=== PATIENT | female | born 1970 | race African-American/Black ===

== ENCOUNTER 2025-08-01 12:48 | Outpatient (AMB) | payer OTHER, SELFPAY ==
--- NOTE | 2025-08-01 13:02 | A.OFFPC_ITS ---
Vital Signs 08/01/25 13:04 Height 5 ft 7.25 in Weight 169 lb BMI 26.3 BP 114/76 Blood Pressure Location Lt brachial Position Sitting Respiration 16 Pulse 72 Pulse Source Pulse Oximeter Temp 97.3 F Temp Source Temporal Artery Scan Pulse Oximetry (%) 98 Intake Visit Reasons: Annual PE Signal Technician Required: No Accompanied by: Self / Same As Patient Allergies Sulfa (Sulfonamide Antibiotics) Allergy (Intermediate, Verified 08/01/25 13:06) stomach pain/cramping Medication List - Last Reconciled 08/01/25 by Shelley Padilla MD albuterol sulfate 90 mcg/actuation inhalation Q6H PRN amlodipine 2.5 mg PO DAILY bupropion HCl XL 150 mg PO DAILY chlorhexidine gluconate 0.12% 15 mL PO DAILY PRN linaclotide (Linzess) 290 mcg PO DAILY multivit with min-folic acid 120 mcg (Vitafusion Women's Multi) 1 tab PO DAILY naratriptan 2.5 mg PO DAILY PRN rosuvastatin 5 mg PO DAILY zolpidem 10 mg PO BEDTIME Tobacco use date assessed: 08/01/25 Dental Screening Dental Screen Date: 08/01/25 Did you have a dental visit in the last 12 months?: Yes Did you have a dental problem in the last 6 months where you did not have access to dental care?: No Was dental information given to patient?: Patient has dentist HPI HPI Comments History of Present Illness Details The patient is a 55 year old female presenting with re-establishment of care and physical examination. Obesity: Managed with Zepbound and later Wegovy. Discontinued Wegovy due to side effects with unchanged weight. Walks 150 minutes/week, intake not calorie-tracked. Zepbound was changed due to insurance issues. Alopecia: Patients experienced hair thinning while on Wegovy, led to medication discontinuation. Gastroesophageal Reflux Disease (GERD): Postprandial burning sensation noted after Wegovy initiation, not exacerbated by recumbence. Sleep Apnea: Reported from prior diagnosis, awaiting October appointment for clinical evaluation at [facility]. Cognitive Change. Self-noted short-term memory decline, unrelated to family reflection, cognitive or conversation repetition. Hypertension: Controlled on amlodipine Hyperlipidemia: on statin Migraine: Controlled with no noted exacerbations. Shoulder Pain: History of left shoulder pain managed with Voltaren. Insomnia: Managed with zolpidem, pending sleep clinic evaluation Social History: - Exercises by walking for 30 minutes, f janet times a week - Caloric intake not tracked - Desires weight management with a goal of reducing to 150 lb - Enjoys bread and rice, minor appetite reduction noted with Wegovy Family History: - Family history of dementia in mother a nd aunt Diagnostic Results: Tests and Diagnostics: - Colonoscopy at [facility] with Dr. Davis: one polyp found(will obtain records) Screening: - Mammogram at [facility] on November 21 was normal - S[employer]IOR [employer] appointment with Dr. Harkins on December 16 2024 Review of Systems - Gastrointestinal: Reports postprandial burning sensation. - Neurological: Reports short-term memor y change - Psychological: Reports anxiety related to health issues. - Musculoskeletal: Denies ongoing pain b vandana reported shoulder issues. - Dermatological: Reports hair thinning. - Respiratory: Denies breathing issues Physical Exam General: NAD Chest: CTABL. Card: normal s1, s2, soft murmur across precordium Abd: SNTND, +BS Extremities: no edema Neuro: AOX3, Cognitive screening with clock drawing and recall test performed, completed successfully. Assessment and Plan 1. Obesity - Advise to try calorie tracking by [employer] michael- [employer] suggested. 2. Alopecia - Recommended Vitaminal supplements for hair, skin, and nails. 3. Gastroesophageal Reflux Disease (GERD ) - Suggested lifestyle changes and omepra zole trial. 4. Sleep Apnea - Sleep clinic referral made, plan CPAP follow-up. 5. Cognitive change - Family history noted, labs for vitamin B12, folate, D planned. Mini Cog score 5/5 6. Hypertension - Continue amlodipine 7. Hyperlipidemia - Maintain current cholesterol therapy. 8. Migraine - Noted under control, no plan changes. 9. Shoulder Pain - Continue Voltaren gel. 10 . Insomnia - Discuss sedative effects, plan detaile d sleep evaluation, potential titration off medication Follow up in 4 months Discussion Notes I discussed with the patient multiple aspects of their medical and wellness care. For weight management, we considered [employer] for detailed calorie tracking . The significance of managing hair thinning was noted; I recommended specific vitamins. The patient expressed concerns about GERD after using Wegovy, and we discussed a trial of omeprazole. I placed a high priority on addressing sleep apnea with a pending clinic appointment, emphasizing the importance of eventual CPAP usage. The potential cognitive effects of zolpidem were reviewed, and I recommended blood testing to rule out vitamin deficiencies. Patient Instructions - Track calorie intake using [employer] michael. - Take omeprazole as directed for heartb urn relief. - Use Viviscal or similar products for Rollerwall. - Attend sleep clinic appointment for ap raven assessment. - Continue current blood pressure and ch olesterol medications. - Maintain prescribed physical activity routine. - Follow up promptly if experiencing wor sening symptoms. [facility] Medical History (Updated 08/01/25 @ 16:56 by Shelley Padilla MD) Routine adult health maintenance Migraine Colon polyp Hair loss Hyperlipidemia, unspecified Obstructive sleep apnea Primary hypertension Surgical History (Updated 08/01/25 @ 14:02 by Shelley Padilla MD) H/O: hysterectomy History of section History of colonoscopy Social History Housing: House Patient Tobacco Use Status: Never used Tobacco e-Cigarette/Vaping Use: Never Used service: No Current occupational status: employed Current occupation: Procurment agent for [employer] Questionnaire PHQ-9 Over the last 2 weeks, how often have you been bothered by any of the following problems? 1. Little interest or pleasure in doing things: not at all 2. Feeling down, depressed, or hopeless: not at all 4. Feeling tired or having little energy: several days 5. Poor appetite or overeating: not at all 6. Feeling bad about yourself - or that you are a failure or have let yourself or your family down: not at all 7. Trouble concentrating on things, such as reading the newspaper or watching television: not at all 8. Moving or speaking so slowly that other people could have noticed. Or the opposite - being so fidgety or restless that you have been moving around a lot more than usual: not at all 9. Thoughts that you would be better off or of hurting yourself in some way: not at all Source: Developed by Drs. Adi Viera, Kelley Rahman, Jhon Zaragoza and colleagues, with an educational mamadou from [employer]. Thrive Questionnaire Date Thrive assessed: 08/01/25 I am a: Patient What is your living situation today?: I have a steady place to live Within the past 12 months, did the food you bought not last and you didn't have the money to get more?: Never true Within the past 12 months, did you worry whether your food would run out before you got money to buy more?: Never true Do you have trouble paying for medicines?: No Do you have trouble getting transportation to medical appointments?: No Do you have trouble paying your heating and electricity bill?: No Do you have trouble taking care of your child, family member or friend?: No Do you have trouble with day-to-day activities such as bathing, preparing meals, shopping, managing finances, etc.?: No Are you currently unemployed and looking for a job?: No Are you interested in more education?: No THRIVE Score: 0 AUDIT C Alcohol Use Questionnaire (AUDIT-C) 1. How often do you have a drink containing alcohol?: Monthly or less 2. How many drinks containing alcohol do you have on a typical day when you are drinking?: 1 or 2 3. How often do you have six or more drinks on one occasion?: Never Total Score: 1 ROSALINA-7 AMB Questionnaire ROSALINA-7 Date ROSALINA - 7 assessed: 08/01/25 Feeling nervous, anxious, or on edge: 1 = Several days Not being able to stop or control worryin = Not at all Worrying too much about different things: 1 = Several days Trouble relaxin = Not at all Being so restless that it is hard to sit still: 0 = Not at all Becoming easily annoyed or irritable: 1 = Several days Feeling afraid as if something awful might happen: 0 = Not at all Total ROSALINA-7 score (0-4 normal; 5-9 mild; 10-14 moderate; 15-21 severe): 3 Source: Developed by Drs. Adi Viera, Kelley Rahman, Jhon Zaragoza and colleagues, with an educational mamadou from [employer]. Physical exam (Primary Care) Vital Signs: Last Vital Signs Temp 97.3 F 08/01/25 13:04 Pulse 72 08/01/25 13:04 Resp 16 08/01/25 13:04 BP 114/76 08/01/25 13:04 Pulse Ox 98 08/01/25 13:04 BMI result Body Mass Index 26.3 Tobacco/Smoking Status: Tobacco use Status Tobacco use date assessed 08/01/25 08/01/25 13:08 Patient Tobacco Use Status Never used Tobacco 08/01/25 13:13 e-Cigarette/Vaping Use Never Used 08/01/25 13:13 Thrive Assessment: Date of Thrive Assessment Date Thrive assessed 08/01/25 08/01/25 16:09 Coding Level of Care Code Est Pt Prev Care 40-64y(29531) Diagnoses Routine adult health maintenance Z00.00 Primary hypertension I10 Hyperlipidemia, unspecified hyperlipidemia type E78.5 Hyperlipidemia type: unspecified Obstructive sleep apnea G47.33 Hair loss L65.9 Assessment & Plan Assessment & Plan (1) Routine adult health maintenance: Code(s): Z00.00 - Encounter for general adult medical examination without abnormal findings Category: Medical (2) Primary hypertension: Code(s): I10 - Essential (primary) hypertension Category: Medical (3) Hyperlipidemia, unspecified: Code(s): E78.5 - Hyperlipidemia, unspecified Category: Medical Qualifiers: Hyperlipidemia type: unspecified Qualified Code(s): E78.5 - Hyperlipidemia, unspecified (4) Obstructive sleep apnea: Code(s): G47.33 - Obstructive sleep apnea (adult) (pediatric) Category: Medical (5) Hair loss: Code(s): L65.9 - Nonscarring hair loss, unspecified Category: Medical Plan - MyFitnessPal for calorie tracking. - Viviscal for hair health. - Omeprazole for reflux monitoring. - Sleep clinic referral. - Trial reduce zolpidem dosage in the future Orders: Orders Vitamin B12 Today E78.5 - Hyperlipidemia, unspecified, G47.33 - Obstructive sleep apnea (adult) (pediatric), I10 - Essential (primary) hypertension Complete Blood Count Auto Diff Today E78.5 - Hyperlipidemia, unspecified, G47.33 - Obstructive sleep apnea (adult) (pediatric), I10 - Essential (primary) hypertension Magnesium Today E78.5 - Hyperlipidemia, unspecified, G47.33 - Obstructive sleep apnea (adult) (pediatric), I10 - Essential (primary) hypertension Microalbumin, Random (w Creat) Today I10 - Essential (primary) hypertension Hemoglobin A1c Today E78.5 - Hyperlipidemia, unspecified, I10 - Essential (primary) hypertension TSH reflex Free T4 Today E78.5 - Hyperlipidemia, unspecified, G47.33 - Obst ructive sleep apnea (adult) (pediatric), I10 - Essential (primary) hypertension Folate Today E78.5 - Hyperlipidemia, unspecified, G47.33 - Obstructive sleep apnea (adult) (pediatric), I10 - Essential (primary) hypertension Comprehensive Met. Panel Today E78.5 - Hyperlipidemia, unspecified, G47.33 - Obstructive sleep apnea (adult) (pediatric), I10 - Essential (primary) hypertension Vitamin D 25-OH Total Today E78.5 - Hyperlipidemia, unspecified, G47.33 - Obstructive sleep apnea (adult) (pediatric), I10 - Essential (primary) hypertension Lipid Panel Today E78.5 - Hyperlipidemia, unspecified, I10 - Essential (primary) hypertension Ferritin Today L65.9 - Nonscarring hair loss, unspecified IRON PROFILE Today L65.9 - Nonscarring hair loss, unspecified Referrals Sleep Medicine Referral G47.33 - Obstructive sleep apnea (adult) (pediatric) Medications: New diclofenac sodium 1% apply 2 gram 4 times per day to affected area 2 grams topical QID 100 grams 11RF shoulder pain amlodipine 2.5 mg PO DAILY 90 tabs 3RF rosuvastatin 5 mg PO DAILY 90 tabs 3RF omeprazole 20 mg PO DAILY 30 caps 0RF
[2025-08-01 13:04] VITALS: BP 114/76; PULSE 72; RESP 16; TEMP 36.3; O2SAT 98; BMI 26.3
--- OUTSIDE RECORDS SUMMARY | 2025-08-01 13:56 | XMS_ITS | Clinical Summary ---
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 Active amLODIPine (NORVASC) 2.5 mg tablet Take by mouth 1 (one) time each day. Active zolpidem (AMBIEN) 10 mg tablet Take by mouth at bedtime as needed for sleep. Active buPROPion XL (WELLBUTRIN XL) 150 mg 24 hr tablet Take 1 tablet (150 mg total) by mouth 1 (one) time each day. Do not crush, chew, or split. Active lactobacillus acidoph-l.bulgar 100 million cell granules in packet Take 1 packet by mouth. Active Linzess 290 mcg capsuleIndication s:Constipation, unspecified constipation type TAKE 1 CAPSULE BY MOUTH DAILY 30 capsule 3 5 Active Surgical History Surgery Date Site/Laterality Comments HYSTERECTOMY SECTION, LOW TRANSVERSE Medical History Medical History Date Comments Hypertension Hyperlipidemia Constipation Anxiety Chronic migraine without aura Social History Tobacco Use Types Packs/Day Years Used Date Smoking Tobacco: Never Smokeless Tobacco: Never Tobacco Cessation:Counseling Given: Not Answered Alcohol Use Standard Drinks/Week Comments Not Currently 0 (1 standard drink = 0.6 oz pur e alcohol) Interpersonal Safety Answer Date Record ed Physical Abuse Unrecognized value 09/09/2024 Verbal Abuse Unrecognized value 09/09/2024 Comments Unknown Sex and Gender Information Value Date Recorded Sex Assigned at Female 07/24/2024 11:23 AM EDT Legal Sex Female 11:48 PM EST Gender Identity Female 07/24/2024 11:23 AM EDT Sexual Orientation Straight 07/24/2024 11 :23 AM EDT Obstetrics History Last Filed Vital Signs Vital Sign Reading Time Taken Comments Blood Pressure 122/78 09/09/2024 2:37 PM EST Pulse 72 09/09/2024 2:27 PM EST Temperature 36.3 C (97.3 F) 09/09/2024 1:24 PM EST Respiratory Rate 21 09/09/2024 2:27 PM EST Oxygen Saturation 100% 09/09/2024 2:37 PM EST Inhaled Oxygen Concentration - - Weight 85.7 kg (189 lb) 09/09/2024 1:24 PM EST Height 170.2 cm (5' 7 ) 09/09/2024 1:24 PM EST Body Mass Index 29.6 09/09/2024 1:24 PM EST Plan of Treatment Health Maintenance Due Date Last Done Comments Hepatitis A Vaccines (1 of 2 - Risk 2-dose series) 1988 Hepatitis B Vaccines (1 of 3 - 19+ 3-dose series) 1988 Cervical Cancer Screening: Pap Smear 1990 Pneumococcal Vaccine: 50+ Years (1 of 1 - PCV) 2019 RSV Immunization Adult Patients (1 - Risk 50-74 years 1-dose series) 2019 Zoster Vaccines (1 of 2) 2019 Breast Cancer Screening 07/31/2020 07/31/2018, 07/28 Cholesterol Screening (Lipid Panel) 09/04/2022 HIV Screening 09/04/2022 Hepatitis C Screening 09/04/2022 Social Influencers of Health Screening 09/04/2022 Hypertension/CHF/CAD Annual BMP Blood Test 09/09/2024 Depression Screening 10/02/2024 COVID-19 Vaccine ( season) 2025 09/16/2021, 01/07/2021, 12/11/2020 Influenza Vaccine (#1) 2025 3, 07/18/2022, 07/08/2021, Additional history exists DTaP,Tdap,and Td Vaccines (3 - Td or Tdap) 07/18/2032 07/18/2022, 07/26/2010 Colorectal Cancer Screening: Colonoscopy 09/09/2034 09/09/2024 HIB Vaccines Aged Out No longer eligi ble based on patient's age to complete this topic HPV Vaccines Aged Out No longer eligi ble based on patient's age to complete this topic IPV Vaccines Aged Out No longer eligi ble based on patient's age to complete this topic MMR Vaccines Aged Out No longer eligi ble based on patient's age to complete this topic Meningococcal ACWY Vaccine Aged Out N o longer eligible based on patient's age to complete this topic Meningococcal B Vaccine Aged Out No l onger eligible based on patient's age to complete this topic RSV Immunization Patients Under 20 months Aged Out No longer eligible based on patient's age to complete this topic Varicella Vaccines Aged Out No longer eligible based on patient's age to complete this topic Procedures Procedure Name Priority Date/Time Associated Diagnosis Comments COLONOSCOPY Routine 09/09/2024 2:16 PM EST Irritable bowel syndrome with constipation Personal history of colon polyps, unspecified SCR MAMMO BI INCL CAD Routine 07/31/2018 1:01 PM EDT Encounter for screening mammogram for malignant neoplasm of breast from Last 3 Months or Most Recently Relevant to Health Maintenance Results * COLONOSCOPY Anesthesia - MAC; [facility] ENDOSCOPY (09/09/2024 2:16 PM EST) Anatomical Region Laterality Modality Endoscopy 09/09/2024 2:01 PM EST Impressions 09/09/2024 2:15 PM EST - The examined portion of the ileum was normal. - One 3 mm polyp in the sigmoid colon, removed with a cold snare. Resected and retrieved. - The examination was otherwise normal on direct and retroflexion views. Recommendation: - Await pathology results. - Repeat colonoscopy for surveillance based on pathology results. Narrative 09/09/2024 2:15 PM EST [facility] Patient Name: Rosa Fuentes Procedure Date: 09/09/2024 2:01 PM Date of : 1970 Age: 54 Gender: Female Note Status: Finalized Attending MD: Amairani Davis MD, Procedure Date No Time: 09/09/2024 Procedure: Colonoscopy Indications: High risk colon cancer surveillance: Personal history of traditional serrated adenoma of the colon Providers: Amairani Davis MD Referring MD: Shelley Padilla MD Medicines: Propofol per Anesthesia Complications: No immediate complications. Estimated Blood Loss: Estimated blood loss: none. Procedure: Pre-Anesthesia Assessment: - ASA Grade Assessment: II - A patient with mild systemic disease. After I obtained informed consent, the scope was passed under direct vision. Throughout the procedure, the patient's blood pressure, pulse, and oxygen saturations were monitored continuously.The Olympus Pediatric Colonoscope was introduced through the anus and advanced to the terminal ileum. The colonoscopy was performed without difficulty. The patient tolerated the procedure well. The quality of the bowel preparation was excellent. Findings: The perianal and digital rectal examinations were normal. The terminal ileum appeared normal. A 3 mm polyp was found in the sigmoid colon. The polyp was sessile. The polyp was removed with a cold snare. Resection and retrieval were complete. The exam was otherwise without abnormality on direct and retroflexion views. Procedure Code(s): --- Professional --- 16788, Colonoscopy, flexible; with removal of tumor(s), polyp(s), or other lesion(s) by snare technique Diagnosis Code(s): --- Professional --- Z86.010, Personal history of colonic polyps D12.5, Benign neoplasm of sigmoid colon CPT copyright 2020 [employer]. All rights reserved. The codes documented in this report are preliminary and upon sample color maker review may be revised to meet current compliance requirements. Amairani Davis MD 09/09/2024 2:15:00 PM This report has been signed electronically.Amairani Davis MD Number of Addenda: 0 Note Initiated On: 09/09/2024 2:01 PM Scope In: Scope Out: Endoscopy Department at [facility] - [address] [place] [id number] Procedure Note Amairani Davis MD - 09/09/2024 [facility] Patient Name: Rosa Fuentes Procedure Date: 09/09/2024 2:01 PM Date of : 1970 Age: 54 Gender: Female Note Status: Finalized Attending MD: Amairani Davis MD, Procedure Date No Time: 09/09/2024 Procedure: Colonoscopy Indications: High risk colon cancer surveillance: Personalhistory of traditional serrated adenoma of the colon Providers: Amairani Davis MD Referring MD: Shelley Padilla MD Medicines: Propofol per Anesthesia Complications: No immediate complications. Estimated Blood Loss: Estimated blood loss: none. Procedure: Pre-Anesthesia Assessment: - ASA Grade Assessment: II - A patient with mild systemic disease. After I obtained informed consent, the scope was passed under direct vision. Throughout theprocedure, the patient's blood pressure, pulse, and oxygen saturations were monitored continuously.The Olympus Pediatric Colonoscope was introduced through theanus and advanced to the terminal ileum. The colonoscopy was performed without difficulty. The patient tolerated the procedure well. The quality of thebowel preparation was excellent. Findings: The perianal and digital rectal examinations were normal. The terminal ileum appeared normal. A 3 mm polyp was found in the sigmoid colon. Thepolyp was sessile. The polyp was removed with a coldsnare. Resection and retrieval were complete. The exam was otherwise without abnormality ondirect and retroflexion views. Procedure Code(s): --- Professional --- 83529, Colonoscopy, flexible; with removal of tumor(s), polyp(s), or other lesion(s) by snare technique Diagnosis Code(s): --- Professional --- Z86.010, Personal history of colonic polyps D12.5, Benign neoplasm of sigmoid colon CPT copyright 2020 [employer]. All rights reserved. The codes documented in this report are preliminary and upon sample color maker reviewmay be revised to meet current compliance requirements. Amairani Davis MD 09/09/2024 2:15:00 PM This report has been signed electronically.Amairani Davis MD Number of Addenda: 0 Note Initiated On: 09/09/2024 2:01 PM Scope In: Scope Out: Endoscopy Department at [facility] - [address] [place] [id number] IMPRESSION: - The examined portion of the ileum was normal. - One 3 mm polyp in the sigmoid colon, removed witha cold snare. Resected and retrieved. - The examination was otherwise normal on directand retroflexion views. Recommendation: - Await pathology results. - Repeat colonoscopy for surveillance based on pathology results. Amairani Davis MD GI~PROCEDURE ORDERABLES Final Result * SCR MAMMO BI INCL CAD (07/31/2018 1:01 PM EDT) Anatomical Region Laterality Modality Radiographic Olimpia ging 07/28/2017 2:14 PM EDT Narrative 08/01/2018 2:06 PM EDT This is a summary report. The complete report is available in the patient's medical record. If you cannot access the medical record, please contact the sending organization for a detailed fax or copy. Full field digital screening mammography, reviewed with CAD and compared to previous. The breasts are composed of fatty and fibroglandular tissue. No suspicious mass, architectural distortion or suspicious calcifications are identified. IMPRESSION: : No mammographic evidence of malignancy. BIRADS 1-Negative; N. 5 year breast cancer risk assessment 1.1 % Lifetime breast cancer risk assessment 8.8 % Breast cancer risk category Low (<15%) Procedure Note Cliff Pittman MD - 09/20/2022 This is a summary report. The complete report is available in thepatient's medical record. If you cannot access the medical record, pleasecontact the sending organization for a detailed fax or copy. Full field digital screening mammography, reviewed with CAD and comparedto previous. The breasts are composed of fatty and fibroglandular tissue.No suspicious mass, architectural distortion or suspicious calcificationsare identified. IMPRESSION: : No mammographic evidence of malignancy. BIRADS 1-Negative; N. 5 year breast cancer risk assessment 1.1 % Lifetime breast cancer risk assessment 8.8 % Breast cancer risk category Low (<15%) Truman Harkins MD IMG XR PROCEDURES Final Resu lt from Last 3 Months or Most Recently Relevant to Health Maintenance Insurance [facility] Care Teams Reinforcing Steel Worker Wire Mesh Relationship Specialty Start Date End Date Shelley Padilla MD [address] [place] [address] PCP - General Internal Medicine 09/09/24
--- OUTSIDE RECORDS SUMMARY | 2025-08-01 13:56 | XMS_ITS | Patient Health Record ---
Author Organization [facility] [address] Address [address] [place] [address] Care Team Providers Care Health Service Worker Name Role Phone FELIPE HARDY Unavailable [phone] Allergies Allergen (clinical drug ingredient) Drug/Non Drug Allergy documented on EMR Reaction Allergy Type Onset Date Status sulfer (uncoded) Unknown Allergy Act janet Reason For Referral No Information Medications Medication SIG (Take, Route, Frequency, Duration) Notes Start Date End Date Status Rosuvastatin Calcium 5 MG 1 tablet Orall y Once a day; Duration: 90 days 01/03/2022 Active Fluticasone Propionate 50 MCG/ACT 1 spray in each nostril Nasally Once a day; Duration: 30 day(s) Active Ambien 10 MG 1 tablet at bedtime Orally Once a day; Duration: 90 days 10/29/2021 Active hydrOXYzine HCl 25 MG 1 tablet Orally da jaycob prn; Duration: 30 day(s) 04/26/2022 Active Citalopram Hydrobromide 20 MG 1 tablet Orally Once a day; Duration: 30 day(s) 05/02/2022 Active amLODIPine Besylate 2.5 MG TAKE 1 TABLET BY MOUTH EVERY DAY; Duration: 30 Active Sertraline HCl 50 MG 1 tablet Orally Onc e a day; Duration: 30 day(s) 04/26/2022 Active Probiotic - as directed Orally Active Naratriptan HCl 2.5 MG TAKE 1 TABLET BY MOUTH ONCE A DAY FOR ONE DAY; Duration: 1 Active Immunizations Vaccine Route Administration Date Status Comme nts Flu vaccine no Preserv 3 and > IM Intramuscular 07/08/2021 Administered Social History Tobacco Use: Social History Observation Description Date Details (start date - stop date) Never Smoker NA - NA Tobacco Use/Smoking Question Answer Notes Are you a nonsmoker Section Notes: purcasing agent purcasing agent purcasing agent purcasing agent purcasing agent purcasing agent purcasing agent purcasing agent purcasing agent purcasing agent purcasing agent purcasing agent purcasing agent purcasing agent purcasing agent purcasing agent Problems Problem Type SNOMED Code ICD Code Onset Dates Problem Status W/U Status Risk Notes Problem Obesity (100400855) Obesity, unspecified (E66.9) Active confirmed Problem Hyperlipidemia (75382056) Hyperlipidemia, unspecified (E78.5) Active confirmed Problem Primary insomnia (5766227) Primary insomnia (F51.01) Active confirmed Problem Refractory migraine with aura (777652780) Migraine with aura, intractable, without status migrainosus (G43.119) Active confirmed Problem Insomnia (716441737) Insomnia, unspecified (G47.00) Active confirmed Problem Postoperative hypertension (3874981278433) Postprocedural hypertension (I97.3) Active confirmed Problem Body mass index 30.00 to 34.99 (286391407642965) Body mass index (BMI) 33.0-33.9, adult (Z68.33) Active confirmed Problem Anxiety (59959239) Anxiety (F41.9) Active confirmed Problem Depressive disorder (disorder) (35437945) Depression, unspecified depression type (F32.9) Active confirmed Problem Chronic sinusitis (24417710) Sinusitis, unspecified chronicity, unspecified location (J32.9) Active confirmed Problem Vitamin D deficiency (04289416) Vitamin D deficiency (E55.9) Active confirmed Problem Pulmonary nodule (187589665) Pulmonary nodule (R91.1) Active confirmed Problem Fatty liver (634124785) Fatty liver (K76.0) Active confirmed Problem Depression (562636381) Other depression (F32.89) Active confirmed Problem Primary hypertension (56878670) Primary hypertension (I10) Active confirmed Plan Of Treatment Pending Test Test Name Order Date Ultrasound : Abdomen 06/08/2021 Colonoscopy 04/16/2019 25 HYDROXY VITAMIN D2 D3 10/28/2021 ALKALINE PHOSPHATASE 06/08/2021 ALKALINE PHOSPHATASE 10/28/2021 COMPREHENSIVE METABOLIC PANEL 08/10/2021 COMPREHENSIVE METABOLIC PANEL 06/05/2020 CORTISOL 11/06/2020 LIPID PANEL, STANDARD 10/28/2021 LIPID PANEL, STANDARD 02/10/2022 HEPATITIS PANEL, GENERAL 07/08/2021 COMPREHENSIVE METABOLIC PANEL 10/28/2021 COMPREHENSIVE METABOLIC PANEL 02/10/2022 PHOSPHATE ( PHOSPHORUS) 07/08/2021 CBC (INCLUDES DIFF/PLT) 10/28/2021 CBC (INCLUDES DIFF/PLT) 02/10/2022 URINALYSIS, COMPLETE 02/10/2022 US Abdomen 06/05/2020 Future Test Test Name Order Date LIPID PANEL, STANDARD 07/06/2022 Insurance Providers Payer Name Payer Address Payer Phone Subscriber Number Group Number Insured Name Patient Relationship to Insured Coverage Start Date Coverage End Date [employer] ([employer]) [address] [place] [address] [id number] ALLISON WISE Self - patient is the insured Medications Administered Medication Instructions Date of Administration Dosage Notes vitamin b12 05/10/2019 1 mL vitamin b12 06/11/2019 1 mL vitamin b12 07/09/2019 1 mL vitamin b12 08/09/2019 1 mL vitamin b12 09/06/2019 1 mL vitamin b12 10/07/2019 1 mL vitamin b12 11/04/2019 1 mL Medical (General) History Medical History History ICD Code migraine headaches Surgical History Surgery Date(Month/Year) hysterectomy section
--- OUTSIDE RECORDS SUMMARY | 2025-08-01 13:56 | XMS_ITS | Patient Health Record ---
[facility] Address [address] [place] [address] Care Team Providers Care Creative Services Producer Name Role Phone ValerieEsperanza armstrongberly Primary Care Provider Unavaila Elmer Weiner Unavailable [phone] Allergies Allergen (clinical drug ingredient) Drug/Non Drug Allergy documented on EMR Reaction Allergy Type Onset Date Status Substance with sulfonamide structure and antibacterial mechanism of action (substance) Sulfa Antibiotics stomach cramps Drug Allergy Active Reason For Referral No Information Medications Medication SIG (Take, Route, Frequency, Duration) Notes Start Date End Date Status LamISIL 250 MG 1 tablet Orally Once a day; Duration: 30 days 11/11/2022 Not-Takin g amLODIPine Besylate 2.5 MG 1 tablet Oral ly Once a day; Duration: 30 day(s) Active Rosuvastatin Calcium 5 MG 1 tablet Orall y Once a day; Duration: 30 day(s) Active 28-0.8 MG TK 1 T PO QD Oral; Duration: 30 Not-Taking Omeprazole 20 MG TK 1 C PO D Oral; Duration: 30 Not-Taking LORazepam 0.5 MG (Schedule IV Drug) T K 1 T PO Q 6 H PRN FOR ANXIETY Oral; Duration: 2 Not-Taking Amitriptyline HCl 25 MG TK 1 T PO HS Ora l; Duration: 30 Not-Taking Ferrous Gluconate 324 (38 Fe) MG 1 tablet with water or juice between meals Orally Once a day; Duration: 30 day(s) Active Naratriptan HCl 2.5 MG 1 tablet Orally O nce a day; Duration: 1 day(s) Active Zolpidem Tartrate 10 MG 1 tablet at bedt rohan as needed Orally Once a day Active Vitamins 28-0.8 MG TK 1 T PO QD Oral; Duration: 30 Not-Taking Social History Tobacco Use: Social History Observation Description Date Details (start date - stop date) Never Smoker NA - NA Tobacco Use/Smoking Question Answer Notes Are you a: nonsmoker Additional Findings: Tobacco Non-User Current no n-smoker Alcohol Screen Question Answer Notes Did you have a drink containing alcohol in the p ast year? No Points 0 Interpretation Negative Tobacco use other than smoking: Question Answer Notes Are you an other tobacco user? No Problems Problem Type SNOMED Code ICD Code Onset Dates Problem Status W/U Status Risk Notes Problem Acquired hammer toe of right foot (6910067924624 105) Other hammer toe(s) (acquired), right foot (M20.41) Active confirmed Problem Acquired hammer toe of left foot (6579782174754 103) Other hammer toe(s) (acquired), left foot (M20.42) Active confirmed Plan Of Treatment Pending Test Test Name Order Date X ray : Foot, left 2V 03/03/2017 X ray : Foot, right 2V 03/03/2017 Insurance Providers Payer Name Payer Address Payer Phone Subscriber Number Group Number Insured Name Patient Relationship to Insured Coverage Start Date Coverage End Date [employer] ([facility]) [address] [place] [id number] Rosa Fuentes Self - patient is the insured Medical (General) History Medical History History ICD Code Headaches Migraines Chicken pox High blood pressure Surgical History Surgery Date(Month/Year) section 06/20/2003 hysterectomy 2019
== END 2025-08-01 14:05 | disposition home or self-care (01) ==
LOC: HO.HMCHD 12:48
PROVIDERS: PCP Internal Medicine; Visit Provider Internal Medicine
DX: Z00.00 Encounter for general adult medical examination without abnormal findings (principal); I10 Essential (primary) hypertension; E78.5 Hyperlipidemia, unspecified; G47.33 Obstructive sleep apnea (adult) (pediatric); L65.9 Nonscarring hair loss, unspecified

== ENCOUNTER 2025-08-05 11:57 | Outpatient (REF) | payer OTHER, SELFPAY ==
[2025-08-05 13:09] LABS: MANUAL DIFF FLAG NO
[2025-08-05 13:17] LABS: Hematocrit 41.5 % (37.0-47.0); Hemoglobin 13.6 g/dl (12.0-16.0); Imm Gran Abs Auto 0.01 X10*3/uL (0.00-0.03); Imm Gran Pct Auto 0.2 % (0.0-0.4); Lymphocytes Absolute Auto 2.3 X10*3/uL (1.2-4.9); Mean Corpuscular HGB Conc 32.8 g/dl (31.0-35.0); Mean Corpuscular Hemoglobin 29.2 pg (27.0-33.0); Mean Corpuscular Volume 89.1 fL (80.0-98.0); NRBC Abs Auto 0.000 X10*3/uL (0.0-0.012); NRBC Pct Auto 0.0 /100WBC (0.0-0.2); Platelet Count 169 X10*3/uL (160-400); Red Blood Count 4.66 X10*6/uL (4.20-5.50); White Blood Count 4.6 X10*3/uL (4.8-10.8)
[2025-08-05 13:28] LABS: Total Hemoglobin (HGBA1C) 3502.2637 umol/L
[2025-08-05 13:47] LABS: Alanine Aminotransferase 20 U/L (0-31); Albumin Level 4.2 g/dL (3.5-5.0); Alkaline Phosphatase 101 U/L (39-117); Anion Gap 8 (12-20); Aspartate Amino Transferase 23 U/L (5-31); Blood Urea Nitrogen 17 mg/dL (9-16); Calcium 8.9 mg/dL (8.4-10.2); Carbon Dioxide 28 mmol/L (22-29); Chloride 107 mmol/L (96-108); Cholesterol 141 mg/dL (<200); Estimated Glomerular Filt Rate > 60; HDL Cholesterol 53 mg/dL (>40); Iron 113 mcg/dL (30-160); Magnesium 2.2 mg/dL (1.6-2.6); Percent Iron Saturation 38 % (15-50); Potassium 4.3 mmol/L (3.3-5.1); Sodium 139 mmol/L (135-145); Total Iron Binding Capacity 294 mcg/dL (228-428); Total Protein 6.8 g/dL (6.5-8.0); Triglycerides 65 mg/dL (<150); Unsaturated Iron Binding 181 ug/dL
[2025-08-05 13:52] LABS: Ferritin 157 ng/mL (10-250)
[2025-08-05 14:13] LABS: Folate 14.9 ng/mL (> or = 4.0); Vitamin B12 879 pg/mL (200-900)
--- OUTSIDE RECORDS SUMMARY | 2025-08-05 14:46 | XMS_ITS | Patient Health Record ---
Author [facility] Address [address] [place] [address] Care Team Providers Care Copy Coordinator Name Role Phone ValerieEsperanza armstrongberly Primary Care Provider Unavaila Elmer Weiner Unavailable [phone] Allergies Allergen (clinical drug ingredient) Drug/Non Drug [...] Problem Acquired hammer toe of right foot (5399807598714 105) Other hammer toe(s) (acquired), right foot (M20.41) Active confirmed Problem Acquired hammer toe of left foot (4580153253190 103) Other hammer toe(s) (acquired), left foot (M20.42) Active confirmed Plan Of Treatment Pending Test Test Name Order Date X ray : Foot, left 2V 03/03/2017 X ray : Foot, right 2V 03/03/2017 Insurance Providers Payer Name Payer Address Payer Phone Subscriber Number Group Number Insured Name Patient Relationship to Insured Coverage Start Date Coverage End Date [employer] ([facility] [address] [place] [address] [id number] Rosa Fuentes Self - patient is the insured Medical (General) History Medical History History ICD Code Headaches Migraines Chicken pox High blood pressure Surgical History Surgery Date(Month/Year) section 06/20/2003 hysterectomy 2019
--- OUTSIDE RECORDS SUMMARY | 2025-08-05 14:46 | XMS_ITS | Clinical Summary ---
Author Organization [facility] Address [address] [place] [address] Phone Care Team Providers Care Wirer Name Role Phone Shelley Padilla MD Primary Care Provider [phone] Allergies Active Allergy Reactions Criticality Noted Date [...] Maintenance Results * COLONOSCOPY Anesthesia - MAC; [facility] ENDOSCOPY (09/09/2024 2:16 PM EST) Anatomical Region [...] pathology results. Narrative 09/09/2024 2:15 PM EST [facility] Patient Name: Rosa Fuentes Procedure Date: [...] retroflexion views. Procedure Code(s): --- Professional --- 74352, Colonoscopy, flexible; with removal of tumor(s), polyp(s), or other lesion(s) by snare technique Diagnosis Code(s): --- Professional --- Z86.010, Personal history of colonic polyps D12.5, Benign neoplasm of sigmoid colon CPT copyright 2020 [employer]. All rights reserved. The codes documented in this report are preliminary and upon pulpwood contractor review may be revised to meet current compliance requirements. Amairani Davis MD 09/09/2024 2:15:00 PM This report has been signed electronically.Amairani Davis MD Number of Addenda: 0 Note Initiated On: 09/09/2024 2:01 PM Scope In: Scope Out: Endoscopy Department at [facility] - [address] [place] [phone] Procedure Note Amairani Davis MD - 09/09/2024 [facility] Patient Name: Rosa Fuentes Procedure Date: [...] retroflexion views. Procedure Code(s): --- Professional --- 44589, Colonoscopy, flexible; with removal of tumor(s), polyp(s), or other lesion(s) by snare technique Diagnosis Code(s): --- Professional --- Z86.010, Personal history of colonic polyps D12.5, Benign neoplasm of sigmoid colon CPT copyright 2020 [employer]. All rights reserved. The codes documented in this report are preliminary and upon pulpwood contractor reviewmay be revised to meet current compliance requirements. Amairani Davis MD 09/09/2024 2:15:00 PM This report has been signed electronically.Amairani Davis MD Number of Addenda: 0 Note Initiated On: 09/09/2024 2:01 PM Scope In: Scope Out: Endoscopy Department at [facility] - [address] [place] [phone] IMPRESSION: - The examined portion of the [...] Most Recently Relevant to Health Maintenance Insurance [facility] Care Teams Wirer Relationship Specialty Start Date End Date Shelley Padilla MD [address] [place] [address] PCP - General Internal Medicine 09/09/24
--- OUTSIDE RECORDS SUMMARY | 2025-08-05 14:47 | XMS_ITS | Patient Health Record ---
Author Organization [facility] [address] Address [address] [place] [address] Care Team Providers Care Dry Wall Finisher Name Role Phone FELIPE HARDY Unavailable [phone] Allergies Allergen (clinical drug ingredient) Drug/Non Drug [...] Status W/U Status Risk Notes Problem Obesity (012058476) Obesity, unspecified (E66.9) Active confirmed Problem Hyperlipidemia (04945031) Hyperlipidemia, unspecified (E78.5) Active confirmed Problem Primary insomnia (7178231) Primary insomnia (F51.01) Active confirmed Problem Refractory migraine with aura (980284026) Migraine with aura, intractable, without status migrainosus (G43.119) Active confirmed Problem Insomnia (734992776) Insomnia, unspecified (G47.00) Active confirmed Problem Postoperative hypertension (5730048888711) Postprocedural hypertension (I97.3) Active confirmed Problem Body mass index 30.00 to 34.99 (569842452002867) Body mass index (BMI) 33.0-33.9, adult (Z68.33) Active confirmed Problem Anxiety (41186205) Anxiety (F41.9) Active confirmed Problem Depressive disorder (disorder) (73473298) Depression, unspecified depression type (F32.9) Active confirmed Problem Chronic sinusitis (74496460) Sinusitis, unspecified chronicity, unspecified location (J32.9) Active confirmed Problem Vitamin D deficiency (72491540) Vitamin D deficiency (E55.9) Active confirmed Problem Pulmonary nodule (631661770) Pulmonary nodule (R91.1) Active confirmed Problem Fatty liver (566840884) Fatty liver (K76.0) Active confirmed Problem Depression (249159460) Other depression (F32.89) Active confirmed Problem Primary hypertension (64440102) Primary hypertension (I10) Active confirmed Plan Of Treatment Pending Test Test Name Order Date Ultrasound : Abdomen 06/08/2021 Colonoscopy 04/16/2019 25 HYDROXY VITAMIN D2 D3 10/28/2021 ALKALINE PHOSPHATASE 10/28/2021 ALKALINE PHOSPHATASE 06/08/2021 COMPREHENSIVE METABOLIC PANEL 08/10/2021 COMPREHENSIVE METABOLIC PANEL 06/05/2020 CORTISOL 11/06/2020 LIPID PANEL, STANDARD 02/10/2022 LIPID PANEL, STANDARD 10/28/2021 HEPATITIS PANEL, GENERAL 07/08/2021 COMPREHENSIVE METABOLIC PANEL [...] End Date [employer] ([employer]) [address] [place] [address] [id number] ALLISON WIES Self - patient is the insured Medications [...]
== END 2025-08-05 11:58 | disposition home or self-care (01) ==
LOC: HO.10HDL 11:57
PROVIDERS: Visit Provider Internal Medicine
DX: I10 Essential (primary) hypertension (principal); G47.33 Obstructive sleep apnea (adult) (pediatric); E78.5 Hyperlipidemia, unspecified; L65.9 Nonscarring hair loss, unspecified; Z13.1 Encounter for screening for diabetes mellitus
CPT/HCPCS: 36415; 80053; 80061; 82306; 82570; 82607; 82728; 82746; 83036; 83540; 83735; 84443; 85025

== ENCOUNTER 2025-09-11 14:22 | Outpatient (AMB) | payer OTHER, SELFPAY ==
[2025-09-11 14:30] VITALS: BP 122/78; PULSE 84; O2SAT 100; BMI 27.7
--- NOTE | 2025-09-11 14:30 | A.OFFVIS_ITS ---
Vital Signs 09/11/25 14:30 Height 5 ft 7.25 in Weight 178 lb 8 oz BMI 27.7 BP 122/78 Blood Pressure Location Lt brachial Position Sitting Pulse 84 Pulse Source Pulse Oximeter Pulse Oximetry (%) 100 Oxygen Delivery Method Room Air Intake Visit Reasons: INP- ANTHONY Outside Machinist Apprentice Required: No Accompanied by: Self / Same As Patient Allergies Sulfa (Sulfonamide Antibiotics) Allergy (Intermediate, Verified 09/11/25 14:31) stomach pain/cramping HPI Comments Details: 55 year old female is referred to us by Dr. Padilla for an evaluation of sleep apnea. Pt states she has had difficulties with sleep for 2 years now and continues to take 10mg zolpidem daily to induce sleep. She recently started to taper to 5mg po daily however this is causing her to wake up at 3am daily. She had an HST at [facility] last year and was diagnosed with mild anthony, she snores mildly, and wakes herself due to gasping for air. She has migraines since teenage years, well managed with naritriptan, now 1x month lasting 1 day to 2 days, with 10/10 pain can not open her eyes or lay her head down, she has photophobia / phonophobia, dizziness, vertigo, n/v. She has acid reflux and takes omeprazole as needed. Allergies mainly in the AM will take Sudafed and environmental asthma. She has brain fog for the last 4 months, can not remember things would get nervous about her stm. Would forget where she placed items and had anxiety. She was started on a GLP 1 in January 2025, did not tolerate it and then tried Wegovy for 2 months. RLS denies paresthesias and cramps that wake her up at night. Mood is okay work is stressful, home life is stressful, takes buproprion 150 qam and manages symptoms. She walks daily for 30 min and is mindful of hydration. FH+ mom was 80 with late onset AD, aunt late onset dementia, Brother 65+ diabetes. [facility] Medical History (Updated 09/15/25 @ 00:21 by Simran Lobo PA-C) Routine adult health maintenance Migraine Colon polyp Hair loss Hyperlipidemia, unspecified Obstructive sleep apnea Primary hypertension Surgical History H/O: hysterectomy History of section History of colonoscopy Social History Housing: House Patient Tobacco Use Status: Never used Tobacco e-Cigarette/Vaping Use: Never Used service: No Current occupational status: employed Current occupation: Procurment agent for [employer] Physical Exam Vital Signs: Last Vital Signs Pulse 84 09/11/25 14:30 BP 122/78 09/11/25 14:30 Pulse Ox 100 09/11/25 14:30 Oxygen Delivery Method Room Air 09/11/25 14:30 BMI result Body Mass Index 27.7 Const General: cooperative, comfortable and no acute distress Nutritional Appearance: average body habitus Orientation/consciousness: patient oriented x3 HEENT Face and sinus: Yes face symmetric Teeth and gingiva: other (mallampti score is 3) Eyes Pupils: Equal, round and reactive pupils present Neck Neck: Yes full ROM Resp Effort & Inspection: normal respiratory effort and able to speak in complete sentences Neuro General: patient oriented x3 and moves all extremities Cranial nerves: Yes Equal, round and reactive pupils present, Yes Normal facial strength present, Yes Midline tongue present, Yes Ability to bilaterally rotate head present and Yes Ability to bilaterally elevate shoulders present Cognition (Neuro): normal cognition Gait exam (Neuro): Normal gait present Motor exam (neuro): 5/5 motor strength present throughout and Normal motor muscle tone present throughout Psych Appearance: grossly normal Speech and movement: Normal speech and movement present Thought process: Normal thought process present Results Reviewed Results Reviewed: Requested [facility] HST results Mild anthony Assessment & Plan Assessment & Plan (1) Obstructive sleep apnea: Code(s): G47.33 - Obstructive sleep apnea (adult) (pediatric) Category: Medical (2) Excessive daytime sleepiness after viral infection: Code(s): B94.9 - Sequelae of unspecified infectious and parasitic disease; G47.19 - Other hypersomnia Category: Medical (3) Migraine: Code(s): G43.909 - Migraine, unspecified, not intractable, without status migrainosus Category: Medical Qualifiers: Migraine type: migraine (< 15 days per month) with aura Status migrainosus presence: without status migrainosus Intractability: intractable Qualified Code(s): G43.119 - Migraine with aura, intractable, without status migrainosus Plan ANTHONY will start her on cpap therapy, mild anthony. Compliance reviewed with pt and for >4hours. rx is written for full face mask and cpap uses daily. Migraines continue Naritriptan and monitor frequency, severity, and keep track of triggers, use the migraine brittney michael. Chronic / Excessive Daytime fatigue, reviewed labs with pt. Vit d is low normal 34/ B12 and ferritin is normal, may start otc Vit D 1000units daily. Magnesium 200-400mg po daily for sleep disturbances. Melatonin 5mg to 10mg po daily for sleep induction. taper off of ambien slowly as tolerable. f/u in 3 months for compliance. Patient Instructions: Please complete the following fasting labs to rule out deficiencies. CBC/CMP/ B12/ Vit D/ TSH/ Homocysteine and MMA/ Ferritin. Sleep Hygiene provided: set a scheduled bedtime and wake time to help regulate the circadian rhythm and balance the release of pituitary hormones. Sleep in a dark room, temperatures below 68 degrees, and no devices n bed. Limit caffeinated products 6 hours prior to bed, and limit fluids 2-4 hours prior to bed. Gentle night yoga, diffusing essential oils, and playing soft music can be relaxing. Coding Level of Care Code New Pt Level 4 (71185) Diagnoses Obstructive sleep apnea G47.33 Excessive daytime sleepiness after viral infection B94.9; G47.19 Intractable migraine with aura without status migrainosus G43.119 Migraine type: migraine (< 15 days per month) with aura Status migrainosus presence: without status migrainosus Intractability: intractable Sleep Questionnaire Difficulty falling asleep: Yes Difficulty staying asleep?: No Number of arousals: 1 Snoring: Yes Witnessed apneas: No Gasping arousals: No Nocturia: No GERD: Yes Vivid dreams: Yes Acting out dreams: No Abnormal behavior in sleep: No Abnormal movements in sleep: No Morning headaches: Yes Excessive daytime sleepiness: Yes Daytime naps: No Restless legs: No Hallucinations: No Sleep paralysis: Yes Drop attacks: No Sleep Study: Yes CPAP: No
--- OUTSIDE RECORDS SUMMARY | 2025-09-11 22:02 | XMS_ITS | Patient Health Record ---
Author Organization [facility] [address] Address [address] [place] [address] Care Team Providers Care Guncotton Packer Name Role Phone FELIPE HARDY Unavailable [phone] Allergies Allergen (clinical drug ingredient) Drug/Non Drug Allergy documented on EMR Reaction Allergy Type Onset Date Status sulfer (uncoded) Unknown Allergy Act janet Reason For Referral No Information Medications Medication SIG (Take, Route, Frequency, Duration) Notes Start Date End Date Status Rosuvastatin Calcium 5 MG Tablet 1 tablet Orally Once a day; Duration: 90 days 01/03/2022 Active Fluticasone Propionate 50 MCG/ACT Suspension 1 spray in each nostril Nasally Once a day; Duration: 30 day(s) Active Ambien 10 MG Tablet 1 tablet at bedtime Orally Once a day; Duration: 90 days 10/29/2021 Active hydrOXYzine HCl 25 MG Tablet 1 tablet Orally daily prn; Duration: 30 day(s) 04/26/2022 Active Citalopram Hydrobromide 20 MG Tablet 1 tablet Orally Once a day; Duration: 30 day(s) 05/02/2022 Active amLODIPine Besylate 2.5 MG Tablet TAKE 1 TABLET BY MOUTH EVERY DAY; Duration: 30 Active Sertraline HCl 50 MG Tablet 1 tablet Ora lly Once a day; Duration: 30 day(s) 04/26/2022 Active Probiotic - Capsule as directed Orally Active Naratriptan HCl 2.5 MG Tablet TAKE 1 TABLET BY MOUTH ONCE A DAY FOR ONE DAY; Duration: 1 Active Immunizations Vaccine Route Administration Date Status Comme nts Flu vaccine no Preserv 3 and > IM Intramuscular 07/08/2021 Administered Social History Tobacco Use: Social History Observation Description Date Details (start date - stop date) Never Smoker NA - NA Social History Tobacco Use: Social Info Question Answer Notes Tobacco Use/Smoking Are you a nonsmoker Section Notes: purcasing agent purcasing agent purcasing agent purcasing agent purcasing agent purcasing agent purcasing agent purcasing agent purcasing agent purcasing agent purcasing agent purcasing agent purcasing agent purcasing agent purcasing agent purcasing agent Problems Problem Type SNOMED Code ICD Code Onset Dates Problem Status W/U Status Risk Notes Problem Obesity (362706001) Obesity, unspecified (E66.9) Active confirmed Problem Hyperlipidemia (95199187) Hyperlipidemia, unspecified (E78.5) Active confirmed Problem Primary insomnia (0006610) Primary insomnia (F51.01) Active confirmed Problem Refractory migraine with aura (189335902) Migraine with aura, intractable, without status migrainosus (G43.119) Active confirmed Problem Insomnia (577521323) Insomnia, unspecified (G47.00) Active confirmed Problem Postoperative hypertension (2298173756971) Postprocedural hypertension (I97.3) Active confirmed Problem Body mass index 30.00 to 34.99 (575105781968742) Body mass index (BMI) 33.0-33.9, adult (Z68.33) Active confirmed Problem Anxiety (23646146) Anxiety (F41.9) Active confirmed Problem Depressive disorder (disorder) (28643676) Depression, unspecified depression type (F32.9) Active confirmed Problem Chronic sinusitis (21049751) Sinusitis, unspecified chronicity, unspecified location (J32.9) Active confirmed Problem Vitamin D deficiency (96391406) Vitamin D deficiency (E55.9) Active confirmed Problem Pulmonary nodule (033423420) Pulmonary nodule (R91.1) Active confirmed Problem Fatty liver (338683404) Fatty liver (K76.0) Active confirmed Problem Depression (951302587) Other depression (F32.89) Active confirmed Problem Primary hypertension (66275293) Primary hypertension (I10) Active confirmed Plan Of Treatment Pending Test Test Name Order Date Ultrasound : Abdomen 06/08/2021 Colonoscopy 04/16/2019 25 HYDROXY VITAMIN D2 D3 10/28/2021 ALKALINE PHOSPHATASE 10/28/2021 ALKALINE PHOSPHATASE 06/08/2021 COMPREHENSIVE METABOLIC PANEL 06/05/2020 COMPREHENSIVE METABOLIC PANEL 08/10/2021 CORTISOL 11/06/2020 LIPID PANEL, STANDARD 02/10/2022 LIPID PANEL, STANDARD 10/28/2021 HEPATITIS PANEL, GENERAL 07/08/2021 COMPREHENSIVE METABOLIC PANEL 02/10/2022 COMPREHENSIVE METABOLIC PANEL 10/28/2021 PHOSPHATE ( PHOSPHORUS) 07/08/2021 CBC (INCLUDES DIFF/PLT) 10/28/2021 CBC (INCLUDES DIFF/PLT) 02/10/2022 URINALYSIS, COMPLETE 02/10/2022 US Abdomen 06/05/2020 Future Test Test Name Order Date LIPID PANEL, STANDARD 07/06/2022 Insurance Providers Payer Name Payer Address Payer Phone Subscriber Number Group Number Insured Name Patient Relationship to Insured Coverage Start Date Coverage End Date [employer] ([employer] [address] [place] [id number] ALLISON WISE Self - patient is [...]
--- OUTSIDE RECORDS SUMMARY | 2025-09-11 22:02 | XMS_ITS | Clinical Summary ---
Author Organization [facility] Address [address] [place] [address] Phone Care Team Providers Care Auto Body Repairer Name Role Phone Shelley Padilla MD Primary Care Provider [phone] Allergies Active Allergy Reactions Criticality Noted Date [...] packet by mouth. Active Linzess 290 mcg capsuleIndicatio ns:Constipation, unspecified constipation type TAKE 1 CAPSULE BY MOUTH DAILY 30 capsule 3 08/19/20 25 Active Linzess 290 mcg capsuleIndicatio ns:Constipation, unspecified constipation type TAKE 1 CAPSULE BY MOUTH DAILY 30 capsule 3 03/17/20 25 025 Discontinued Surgical History Surgery Date Site/Laterality Comments HYSTERECTOMY [...] Orientation Straight 07/24/2024 11 :23 AM EDT Last Filed Vital Signs Vital Sign Reading [...] Test 09/09/2024 Depression Screening 10/02/2024 COVID-19 Vaccine (4 - season) 2025 09/16/2021, 01/07/2021, 12/11/2020 Influenza Vaccine [...] Maintenance Results * COLONOSCOPY Anesthesia - MAC; SP ENDOSCOPY (09/09/2024 2:16 PM EST) Anatomical Region [...] on pathology results. Narrative 09/09/2024 2:15 PM [facility] Patient Name: Rosa Fuentes Procedure [...] retroflexion views. Procedure Code(s): --- Professional --- 27292, Colonoscopy, flexible; with removal of tumor(s), polyp(s), or other lesion(s) by snare technique Diagnosis Code(s): --- Professional --- Z86.010, Personal history of colonic polyps D12.5, Benign neoplasm of sigmoid colon CPT copyright 2020 [employer]. All rights reserved. The codes documented in this report are preliminary and upon remote inpatient coder review may be revised to meet current compliance requirements. Amairani Davis MD 09/09/2024 2:15:00 PM This report has been signed electronically.Amairani Davis MD Number of Addenda: 0 Note Initiated On: 09/09/2024 2:01 PM Scope In: Scope Out: Endoscopy Department at [facility] - [address] [place] [phone] Procedure Note Amairani Davis MD - 09/09/2024 [facility] GI Patient Name: Rosa Fuentes Procedure Date: [...] retroflexion views. Procedure Code(s): --- Professional --- 61623, Colonoscopy, flexible; with removal of tumor(s), polyp(s), or other lesion(s) by snare technique Diagnosis Code(s): --- Professional --- Z86.010, Personal history of colonic polyps D12.5, Benign neoplasm of sigmoid colon CPT copyright 2020 [employer]. All rights reserved. The codes documented in this report are preliminary and upon remote inpatient coder reviewmay be revised to meet current compliance requirements. Amairani Davis MD 09/09/2024 2:15:00 PM This report has been signed electronically.Amairani Davis MD Number of Addenda: 0 Note Initiated On: 09/09/2024 2:01 PM Scope In: Scope Out: Endoscopy Department at [facility] - [address] [place] [phone] IMPRESSION: - The examined portion of the ileum was normal. - One 3 mm polyp in the sigmoid colon, removed witha cold snare. Resected and retrieved. - The examination was otherwise normal on directand retroflexion views. Recommendation: - Await pathology results. - Repeat colonoscopy for surveillance based on pathology results. us Amairani Davis MD GI~PROCEDURE ORDERABLES Final Result [...] % Breast cancer risk category Low (<15%) us Truman Harkins MD IMG XR PROCEDURES Final Resu lt from Last 3 Months or Most Recently Relevant to Health Maintenance Insurance [facility] Care Teams Auto Body Repairer Relationship Specialty Start Date End Date Shelley Padilla MD [address] [place] [address] PCP - General Internal Medicine 09/09/24
--- OUTSIDE RECORDS SUMMARY | 2025-09-11 22:02 | XMS_ITS | Patient Health Record ---
[facility] Address [address] [place] [address] Care Team Providers Care Business Management Specialist Name Role Phone Valerie, Shelley Primary Care Provider Unavaila Elmer Weiner Unavailable [phone] Allergies Allergen (clinical drug ingredient) Drug/Non Drug [...] Problem Acquired hammer toe of right foot (1631047721237 105) Other hammer toe(s) (acquired), right foot (M20.41) Active confirmed Problem Acquired hammer toe of left foot (5090900227913 103) Other hammer toe(s) (acquired), left foot (M20.42) Active confirmed Plan Of Treatment Pending Test Test Name Order Date X ray : Foot, left 2V 03/03/2017 X ray : Foot, right 2V 03/03/2017 Insurance Providers Payer Name Payer Address Payer Phone Subscriber Number Group Number Insured Name Patient Relationship to Insured Coverage Start Date Coverage End Date [employer] ([facility]) [address] [place] [id number] Rosa Fuentes Self - patient is the insured Medical (General) History Medical History History ICD Code Headaches Migraines Chicken pox High blood pressure Surgical History Surgery Date(Month/Year) section 06/20/2003 hysterectomy 2019
== END 2025-09-11 15:28 | disposition home or self-care (01) ==
LOC: HO.HSMS 14:22
PROVIDERS: PCP Internal Medicine; Visit Provider Physician Assistant Medical
DX: G47.33 Obstructive sleep apnea (adult) (pediatric) (principal); B94.9 Sequelae of unspecified infectious and parasitic disease; G47.19 Other hypersomnia; G43.119 Migraine with aura, intractable, without status migrainosus
CPT/HCPCS: 99204